=== PATIENT | male | born 1935 | race Caucasian/White ===

== ENCOUNTER 2018-09-15 12:12 | Observation (INO) | payer MEDICARE, OTHER ==
[2018-09-15 13:03] LABS: ADD MAN DIFF? NO
[2018-09-15 13:04] LABS: BASOPHIL # 0.1 10^3/ul (0.0-0.1); BASOPHILS % 0.7 % (0.0-2.0); EOSINOPHILS # 0.1 10^3/ul (0.0-0.5); EOSINOPHILS % 0.9 % (0.0-7.0); HEMATOCRIT 46.1 % (42.0-52.0); HEMOGLOBIN 14.9 g/dl (14.0-18.0); LYMPHOCYTES # 1.7 10^3/ul (0.8-2.9); LYMPHOCYTES % 22.9 % (15.0-51.0); MEAN CORPUSCULAR HGB CONC 32.3 g/dl (32.0-37.0); MEAN CORPUSCULAR VOLUME 86.7 fl (82.0-101.0); MEAN PLATELET VOLUME 9.7 fl (7.4-10.4); MONOCYTE # 0.5 10^3/ul (0.3-0.9); MONOCYTES % 6.9 % (0.0-11.0); NEUTROPHIL # 5.2 10^3/ul (1.6-7.5); NEUTROPHILS % 68.2 % (39.0-77.0); PLATELET COUNT 251 10^3/UL (140-415); RED BLOOD COUNT 5.32 10^6/ul (4.70-6.10); RED CELL DISTRIBUTION WIDTH 13.7 % (11.5-14.5)
[2018-09-15 13:04] LABS: WHITE BLOOD COUNT 7.6 10^3/ul (4.8-10.8)
[2018-09-15 13:23] LABS: ALANINE AMINOTRANSFERASE 18 IU/L (13-69); ALBUMIN 4.1 g/dl (3.3-4.9); ALBUMIN/GLOBULIN RATIO 1.28; ALKALINE PHOSPHATASE 47 IU/L (42-121); ANION GAP 10 (5-13); ASPARTATE AMINO TRANSFERASE 22 IU/L (15-46); BILIRUBIN,INDIRECT 0.5 mg/dl (0-1.1); BILIRUBIN,TOTAL 0.5 mg/dl (0.2-1.3); BLOOD UREA NITROGEN 21 mg/dl (7-20); CALCIUM 9.5 mg/dl (8.4-10.2); CARBON DIOXIDE 26 mmol/L (21-31); CHLORIDE 102 mmol/L (97-110); CREATININE 0.93 mg/dl (0.61-1.24); GLUCOSE 293 mg/dl (70-220); LIPASE 70 U/L (23-300); POTASSIUM 5.2 mmol/L (3.5-5.1); SODIUM 138 mmol/L (135-144); TOTAL PROTEIN 7.3 g/dl (6.1-8.1)
[2018-09-15 13:24] LABS: INR 0.93; PARTIAL THROMBOPLASTIN TIME 29.1 Sec (23.0-35.0); PROTIME 12.6 Sec (11.9-14.9)
[2018-09-15 13:35] LABS: B-TYPE NATRIURETIC PEPTIDE 3150 PG/ML (0-450); TROPONIN-I < 0.012 ng/ml (0.000-0.120)
[2018-09-15] MEDS: FUROSEMIDE 40 MG INJ IV (14:33)
[2018-09-15] MEDS ORDERED: NACL 0.9% 3 ML SYG IV (17:00)
[2018-09-15] MEDS ORDERED: ONDANSETRON 4 MG INJ IV (17:00)
[2018-09-15] MEDS ORDERED: NITROGLYCERIN (SL) 0.4 MG TAB SL (17:00)
[2018-09-15] MEDS ORDERED: DOCUSATE SODIUM 100 MG CAP PO (17:00)
[2018-09-15] MEDS ORDERED: ZOLPIDEM 5 MG TAB PO (17:00)
[2018-09-15 18:26] LABS: HEMOGLOBIN A1C 10.5 % (0-5.9)
[2018-09-15 18:27] LABS: CREATINE KINASE 37 IU/L (23-200)
[2018-09-15] MEDS ORDERED: GLUCOSE GEL 15 GRAM TUBE BUCCAL (18:30)
[2018-09-15] MEDS ORDERED: GLUCAGON 1 MG INJ IM (18:30)
[2018-09-15] MEDS ORDERED: GLUCOSE GEL 15 GRAM TUBE PO ×2 (18:30)
[2018-09-15] MEDS ORDERED: DEXTROSE 50% 50 ML SYRINGE IV ×2 (18:30)
[2018-09-15] MEDS: INSULIN ASPART [NOVOLOG] 3 ML PEN SC ×2 (18:36→20:58)
[2018-09-15 18:40] LABS: CK INDEX 3.8; CK-MB 1.42 ng/ml (0.0-2.4); TROPONIN-I 0.024 ng/ml (0.000-0.120)
[2018-09-15 20:35] LABS: CREATINE KINASE 34 IU/L (23-200)
[2018-09-15] MEDS: RANOLAZINE (SR) 500 MG TAB PO (20:39)
[2018-09-15] MEDS: ATORVASTATIN 40 MG TAB PO (20:40)
[2018-09-15] MEDS: ISOSORBIDE DINITRATE 10 MG TAB PO (20:41)
[2018-09-15 20:48] LABS: CK INDEX 3.4; CK-MB 1.15 ng/ml (0.0-2.4); TROPONIN-I 0.025 ng/ml (0.000-0.120)
[2018-09-15 22:57] LABS: CREATINE KINASE 30 IU/L (23-200)
[2018-09-15 23:10] LABS: CK INDEX 3.4; CK-MB 1.03 ng/ml (0.0-2.4); TROPONIN-I 0.025 ng/ml (0.000-0.120)
[2018-09-16] MEDS: ACCU-CHEK XX (01:54)
[2018-09-16] MEDS: FUROSEMIDE 20 MG INJ IV (06:53)
[2018-09-16] MEDS: RANOLAZINE (SR) 500 MG TAB PO (08:17)
[2018-09-16] MEDS: ISOSORBIDE DINITRATE 10 MG TAB PO ×2 (08:17→13:49)
[2018-09-16] MEDS: ASPIRIN 81 MG TAB PO (08:17)
[2018-09-16] MEDS: ENOXAPARIN 40 MG/0.4 ML SYG SC (08:28)
[2018-09-16] MEDS: INSULIN ASPART [NOVOLOG] 3 ML PEN SC ×2 (08:29→12:31)
[2018-09-16 09:01] LABS: HEMOGLOBIN A1C 10.5 % (0-5.9)
[2018-09-16 09:09] LABS: ANION GAP 12 (5-13); BLOOD UREA NITROGEN 21 mg/dl (7-20); CARBON DIOXIDE 23 mmol/L (21-31); CHLORIDE 100 mmol/L (97-110); CREATININE 0.97 mg/dl (0.61-1.24); GLUCOSE 281 mg/dl (70-220); POTASSIUM 3.9 mmol/L (3.5-5.1); SODIUM 135 mmol/L (135-144)
[2018-09-16] MEDS ORDERED: LABETALOL HCL 20MG INJ (15:24)
== END 2018-09-16 16:20 | disposition home or self-care (01) ==
LOC: E/R 12:12 → TEL 16:28 → E/R 17:27 → TEL 17:32
DX: I50.23 Acute on chronic systolic (congestive) heart failure (principal); R07.9 Chest pain, unspecified; I51.7 Cardiomegaly; J98.11 Atelectasis; J90 Pleural effusion, not elsewhere classified; I70.90 Unspecified atherosclerosis; I25.10 Atherosclerotic heart disease of native coronary artery without angina pectoris; E11.9 Type 2 diabetes mellitus without complications; I10 Essential (primary) hypertension; E78.5 Hyperlipidemia, unspecified; Z79.82 Long term (current) use of aspirin; Z79.4 Long term (current) use of insulin; Z95.1 Presence of aortocoronary bypass graft
CPT/HCPCS: 36415; 71045; 80048; 80053; 82550; 82553; 82962; 83036; 83690; 83880; 84484; 85025; 85610; 85730; 93005; 93306; 96374; 97161; 99285-25; G0378

== ENCOUNTER 2018-10-04 05:07 | Inpatient (IN) | payer MEDICARE, OTHER ==
[2018-10-04] MEDS: ENALAPRILAT 1.25 MG INJ IV (05:26)
[2018-10-04] MEDS: FUROSEMIDE 40 MG INJ IV ×2 (05:27→17:23)
[2018-10-04 05:29] LABS: ADD MAN DIFF? NO
[2018-10-04 05:31] LABS: WHITE BLOOD COUNT 13.6 10^3/ul (4.8-10.8)
[2018-10-04 05:31] LABS: BASOPHIL # 0.1 10^3/ul (0.0-0.1); BASOPHILS % 0.8 % (0.0-2.0); EOSINOPHILS # 0.1 10^3/ul (0.0-0.5); EOSINOPHILS % 0.8 % (0.0-7.0); HEMATOCRIT 48.4 % (42.0-52.0); HEMOGLOBIN 15.5 g/dl (14.0-18.0); LYMPHOCYTES # 3.4 10^3/ul (0.8-2.9); LYMPHOCYTES % 24.8 % (15.0-51.0); MEAN CORPUSCULAR HEMOGLOBIN 28.6 pg (29.0-33.0); MEAN CORPUSCULAR VOLUME 89.3 fl (82.0-101.0); MONOCYTE # 0.9 10^3/ul (0.3-0.9); MONOCYTES % 6.8 % (0.0-11.0); NEUTROPHILS % 66.3 % (39.0-77.0); PLATELET COUNT 348 10^3/UL (140-415); RED BLOOD COUNT 5.42 10^6/ul (4.70-6.10); RED CELL DISTRIBUTION WIDTH 14.1 % (11.5-14.5)
[2018-10-04] MEDS: ASPIRIN 81 MG TAB PO (05:37)
[2018-10-04 05:55] LABS: ALANINE AMINOTRANSFERASE 25 IU/L (13-69); ALBUMIN 4.4 g/dl (3.3-4.9); ALBUMIN/GLOBULIN RATIO 1.22; ALKALINE PHOSPHATASE 54 IU/L (42-121); ANION GAP 20 (5-13); ASPARTATE AMINO TRANSFERASE 31 IU/L (15-46); BILIRUBIN,INDIRECT 0.9 mg/dl (0-1.1); BILIRUBIN,TOTAL 0.9 mg/dl (0.2-1.3); BLOOD UREA NITROGEN 20 mg/dl (7-20); CALCIUM 9.2 mg/dl (8.4-10.2); CARBON DIOXIDE 20 mmol/L (21-31); CHLORIDE 99 mmol/L (97-110); CREATININE 1.16 mg/dl (0.61-1.24); LIPASE 75 U/L (23-300); POTASSIUM 4.3 mmol/L (3.5-5.1); SODIUM 139 mmol/L (135-144)
[2018-10-04 06:02] LABS: GLUCOSE 444 mg/dl (70-220)
[2018-10-04 06:06] LABS: B-TYPE NATRIURETIC PEPTIDE 2850 PG/ML (0-450); TROPONIN-I 0.076 ng/ml (0.000-0.120)
[2018-10-04] MEDS: NITROGLYCERIN (SL) 0.4 MG TAB SL (06:10)
[2018-10-04] MEDS ORDERED: GLUCOSE GEL 15 GRAM TUBE BUCCAL (06:30)
[2018-10-04] MEDS ORDERED: DEXTROSE 50% 50 ML SYRINGE IV ×2 (06:30)
[2018-10-04] MEDS ORDERED: GLUCAGON 1 MG INJ IM (06:30)
[2018-10-04] MEDS ORDERED: GLUCOSE GEL 15 GRAM TUBE PO ×2 (06:30)
[2018-10-04] MEDS: INSULIN LISPRO 100 UNIT/ML VIAL SC (06:54)
[2018-10-04] MEDS: CEFTRIAXONE 1 GM/50 ML (PMX) 50 ML IVPB (08:45)
[2018-10-04] MEDS: AZITHROMYCIN 500MG/NS (PMX) 250 ML IV (09:25)
[2018-10-04] MEDS ORDERED: ACETAMINOPHEN 325 MG TAB PO (10:30)
[2018-10-04] MEDS ORDERED: ONDANSETRON 4 MG INJ IV (10:30)
[2018-10-04] MEDS ORDERED: HYDROCODONE/APAP (5/325) TAB PO (13:00)
[2018-10-04] MEDS ORDERED: NACL 0.9% 3 ML SYG IV (13:00)
[2018-10-04 14:40] LABS: TROPONIN-I 0.904 ng/ml (0.000-0.120)
[2018-10-04] MEDS: INSULIN ASPART [NOVOLOG] 3 ML PEN SC ×3 (17:14→20:29)
[2018-10-04] MEDS: RANOLAZINE (SR) 500 MG TAB PO (20:13)
[2018-10-04] MEDS: INSULIN GLARGINE [LANTus] (100 UNITS/ML) SYG SC (20:18)
[2018-10-04] MEDS: HEPARIN 5,000 UNIT/1 ML VIAL SC (20:18)
[2018-10-04 21:21] LABS: TROPONIN-I 0.763 ng/ml (0.000-0.120)
[2018-10-05] MEDS: FUROSEMIDE 40 MG INJ IV ×2 (05:09→18:24)
[2018-10-05 06:18] LABS: ADD MAN DIFF? NO
[2018-10-05 06:26] LABS: WHITE BLOOD COUNT 8.9 10^3/ul (4.8-10.8)
[2018-10-05 06:26] LABS: BASOPHILS % 0.4 % (0.0-2.0); EOSINOPHILS # 0.1 10^3/ul (0.0-0.5); EOSINOPHILS % 0.8 % (0.0-7.0); HEMATOCRIT 46.5 % (42.0-52.0); HEMOGLOBIN 15.3 g/dl (14.0-18.0); LYMPHOCYTES # 1.7 10^3/ul (0.8-2.9); LYMPHOCYTES % 19.1 % (15.0-51.0); MEAN CORPUSCULAR HEMOGLOBIN 28.5 pg (29.0-33.0); MEAN CORPUSCULAR HGB CONC 32.9 g/dl (32.0-37.0); MEAN CORPUSCULAR VOLUME 86.6 fl (82.0-101.0); MONOCYTE # 0.8 10^3/ul (0.3-0.9); MONOCYTES % 9.3 % (0.0-11.0); NEUTROPHIL # 6.2 10^3/ul (1.6-7.5); PLATELET COUNT 264 10^3/UL (140-415); RED BLOOD COUNT 5.37 10^6/ul (4.70-6.10)
[2018-10-05 06:45] LABS: HEMOGLOBIN A1C 10.1 % (0-5.9)
[2018-10-05 06:51] LABS: ALANINE AMINOTRANSFERASE 27 IU/L (13-69); ALBUMIN/GLOBULIN RATIO 1.08; ALKALINE PHOSPHATASE 46 IU/L (42-121); ANION GAP 13 (5-13); ASPARTATE AMINO TRANSFERASE 26 IU/L (15-46); BILIRUBIN,INDIRECT 1.2 mg/dl (0-1.1); BILIRUBIN,TOTAL 1.2 mg/dl (0.2-1.3); BLOOD UREA NITROGEN 20 mg/dl (7-20); CARBON DIOXIDE 30 mmol/L (21-31); CHLORIDE 97 mmol/L (97-110); CREATININE 1.08 mg/dl (0.61-1.24); GLUCOSE 219 mg/dl (70-220); POTASSIUM 3.8 mmol/L (3.5-5.1); SODIUM 140 mmol/L (135-144); TOTAL PROTEIN 7.7 g/dl (6.1-8.1)
[2018-10-05] MEDS: INSULIN ASPART [NOVOLOG] 3 ML PEN SC ×7 (08:19→20:24)
[2018-10-05] MEDS: RANOLAZINE (SR) 500 MG TAB PO ×2 (09:31→20:11)
[2018-10-05] MEDS: ASPIRIN (EC) 81 MG TAB PO (09:31)
[2018-10-05] MEDS: ISOSORBIDE MONONITRATE(SR)30 MG TAB PO (09:33)
[2018-10-05] MEDS: LOSARTAN 50 MG TAB PO (09:33)
[2018-10-05] MEDS: HEPARIN 5,000 UNIT/1 ML VIAL SC ×2 (09:46→20:25)
[2018-10-05] MEDS: INSULIN GLARGINE [LANTus] (100 UNITS/ML) SYG SC (20:50)
[2018-10-06] MEDS: FUROSEMIDE 40 MG INJ IV ×2 (05:58→18:11)
[2018-10-06 07:47] LABS: B-TYPE NATRIURETIC PEPTIDE 2110 PG/ML (0-450)
[2018-10-06 07:52] LABS: ANION GAP 16 (5-13); BLOOD UREA NITROGEN 31 mg/dl (7-20); CARBON DIOXIDE 29 mmol/L (21-31); CHLORIDE 94 mmol/L (97-110); CREATININE 1.28 mg/dl (0.61-1.24); GLUCOSE 229 mg/dl (70-220); POTASSIUM 3.9 mmol/L (3.5-5.1); SODIUM 139 mmol/L (135-144)
[2018-10-06] MEDS: INSULIN ASPART [NOVOLOG] 3 ML PEN SC ×7 (08:01→21:19)
[2018-10-06] MEDS: ASPIRIN (EC) 81 MG TAB PO (08:07)
[2018-10-06] MEDS: LOSARTAN 50 MG TAB PO (08:07)
[2018-10-06] MEDS: ISOSORBIDE MONONITRATE(SR)30 MG TAB PO (08:07)
[2018-10-06] MEDS: RANOLAZINE (SR) 500 MG TAB PO ×2 (08:07→21:07)
[2018-10-06] MEDS: HEPARIN 5,000 UNIT/1 ML VIAL SC ×2 (08:10→21:20)
[2018-10-06] MEDS: CEFTRIAXONE 1 GM/50 ML (PMX) 50 ML IVPB (17:11)
[2018-10-06] MEDS: AZITHROMYCIN 500MG/NS (PMX) 250 ML IVPB (18:11)
[2018-10-06] MEDS: INSULIN GLARGINE [LANTus] (100 UNITS/ML) SYG SC (21:20)
[2018-10-07] MEDS: ACCU-CHEK XX (02:00)
[2018-10-07] MEDS: FUROSEMIDE 40 MG INJ IV ×2 (06:29→17:57)
[2018-10-07 07:01] LABS: ADD MAN DIFF? NO
[2018-10-07 07:02] LABS: BASOPHILS % 0.6 % (0.0-2.0); EOSINOPHILS # 0.1 10^3/ul (0.0-0.5); EOSINOPHILS % 1.7 % (0.0-7.0); HEMATOCRIT 44.2 % (42.0-52.0); HEMOGLOBIN 14.3 g/dl (14.0-18.0); LYMPHOCYTES # 1.7 10^3/ul (0.8-2.9); LYMPHOCYTES % 23.6 % (15.0-51.0); MEAN CORPUSCULAR HGB CONC 32.4 g/dl (32.0-37.0); MEAN CORPUSCULAR VOLUME 86.7 fl (82.0-101.0); MEAN PLATELET VOLUME 9.8 fl (7.4-10.4); MONOCYTE # 0.6 10^3/ul (0.3-0.9); NEUTROPHIL # 4.7 10^3/ul (1.6-7.5); NEUTROPHILS % 65.7 % (39.0-77.0); PLATELET COUNT 291 10^3/UL (140-415); RED CELL DISTRIBUTION WIDTH 13.5 % (11.5-14.5)
[2018-10-07 07:02] LABS: WHITE BLOOD COUNT 7.2 10^3/ul (4.8-10.8)
[2018-10-07 07:27] LABS: ANION GAP 14 (5-13); BLOOD UREA NITROGEN 36 mg/dl (7-20); CALCIUM 8.9 mg/dl (8.4-10.2); CARBON DIOXIDE 29 mmol/L (21-31); CHLORIDE 95 mmol/L (97-110); CREATININE 1.49 mg/dl (0.61-1.24); GLUCOSE 214 mg/dl (70-220); POTASSIUM 4.1 mmol/L (3.5-5.1); SODIUM 138 mmol/L (135-144)
[2018-10-07] MEDS: INSULIN ASPART [NOVOLOG] 3 ML PEN SC ×7 (07:50→22:23)
[2018-10-07] MEDS: LOSARTAN 50 MG TAB PO (08:56)
[2018-10-07] MEDS: ASPIRIN (EC) 81 MG TAB PO (08:57)
[2018-10-07] MEDS: ISOSORBIDE MONONITRATE(SR)30 MG TAB PO (08:57)
[2018-10-07] MEDS: RANOLAZINE (SR) 500 MG TAB PO ×2 (08:57→20:48)
[2018-10-07] MEDS: HEPARIN 5,000 UNIT/1 ML VIAL SC ×2 (08:58→22:22)
[2018-10-07 10:13] LABS: ADD UMIC YES; UR ASCORBIC ACID NEGATIVE (NEGATIVE); UR BILIRUBIN (Dip) NEGATIVE (NEGATIVE); UR BLOOD (Dip) NEGATIVE (NEGATIVE); UR CLARITY CLEAR (CLEAR); UR COLOR YELLOW (YELLOW); UR GLUCOSE (Dip) NEGATIVE (NEGATIVE); UR KETONES (Dip) NEGATIVE (NEGATIVE); UR LEUKOCYTE ESTERASE (Dip) TRACE Leu/ul (NEGATIVE); UR NITRITE (Dip) NEGATIVE (NEGATIVE); UR RBC 0 /HPF (0-5); UR SPECIFIC GRAVITY (Dip) 1.015 (1.003-1.030); UR TOTAL PROTEIN (Dip) NEGATIVE (NEGATIVE); UR UROBILINOGEN (Dip) NEGATIVE (NEGATIVE); UR WBC 2 /HPF (0-5)
[2018-10-07] MEDS: CEFTRIAXONE 1 GM/50 ML (PMX) 50 ML IVPB (17:16)
[2018-10-07] MEDS: AZITHROMYCIN 500MG/NS (PMX) 250 ML IVPB (17:57)
[2018-10-07] MEDS: INSULIN GLARGINE [LANTus] (100 UNITS/ML) SYG SC (22:22)
[2018-10-08] MEDS: ACCU-CHEK XX (01:26)
[2018-10-08] MEDS: FUROSEMIDE 40 MG INJ IV ×2 (05:12→17:22)
[2018-10-08 06:43] LABS: ADD MAN DIFF? NO
[2018-10-08 06:51] LABS: WHITE BLOOD COUNT 6.8 10^3/ul (4.8-10.8)
[2018-10-08 06:51] LABS: BASOPHILS % 0.6 % (0.0-2.0); EOSINOPHILS # 0.2 10^3/ul (0.0-0.5); EOSINOPHILS % 2.2 % (0.0-7.0); HEMATOCRIT 44.4 % (42.0-52.0); HEMOGLOBIN 14.8 g/dl (14.0-18.0); LYMPHOCYTES # 1.7 10^3/ul (0.8-2.9); LYMPHOCYTES % 25.7 % (15.0-51.0); MEAN CORPUSCULAR HEMOGLOBIN 28.7 pg (29.0-33.0); MEAN CORPUSCULAR HGB CONC 33.3 g/dl (32.0-37.0); MEAN CORPUSCULAR VOLUME 86.2 fl (82.0-101.0); MEAN PLATELET VOLUME 9.4 fl (7.4-10.4); MONOCYTE # 0.5 10^3/ul (0.3-0.9); MONOCYTES % 7.8 % (0.0-11.0); NEUTROPHIL # 4.3 10^3/ul (1.6-7.5); NEUTROPHILS % 63.1 % (39.0-77.0); PLATELET COUNT 323 10^3/UL (140-415); RED BLOOD COUNT 5.15 10^6/ul (4.70-6.10); RED CELL DISTRIBUTION WIDTH 13.3 % (11.5-14.5)
[2018-10-08 07:08] LABS: ANION GAP 11 (5-13); BLOOD UREA NITROGEN 39 mg/dl (7-20); CALCIUM 8.8 mg/dl (8.4-10.2); CARBON DIOXIDE 30 mmol/L (21-31); CHLORIDE 98 mmol/L (97-110); CREATININE 1.39 mg/dl (0.61-1.24); GLUCOSE 185 mg/dl (70-220); POTASSIUM 3.9 mmol/L (3.5-5.1); SODIUM 139 mmol/L (135-144)
[2018-10-08 07:10] LABS: MAGNESIUM 2.2 mg/dl (1.7-2.5)
[2018-10-08] MEDS: ISOSORBIDE MONONITRATE(SR)30 MG TAB PO (08:00)
[2018-10-08] MEDS: ASPIRIN (EC) 81 MG TAB PO (08:00)
[2018-10-08] MEDS: RANOLAZINE (SR) 500 MG TAB PO ×2 (08:01→22:05)
[2018-10-08] MEDS: LOSARTAN 50 MG TAB PO (08:01)
[2018-10-08] MEDS: HEPARIN 5,000 UNIT/1 ML VIAL SC ×2 (08:51→22:15)
[2018-10-08] MEDS: INSULIN ASPART [NOVOLOG] 3 ML PEN SC ×7 (08:53→22:09)
[2018-10-08] MEDS: CEFTRIAXONE 1 GM/50 ML (PMX) 50 ML IVPB (17:21)
[2018-10-08] MEDS ORDERED: BUMETANIDE 3 MG in DEXTROSE 5% 18 ML IV (18:30)
[2018-10-08] MEDS: AZITHROMYCIN 500MG/NS (PMX) 250 ML IVPB (18:37)
[2018-10-08] MEDS: INSULIN GLARGINE [LANTus] (100 UNITS/ML) SYG SC (22:14)
[2018-10-09] MEDS: ACCU-CHEK XX (02:00)
[2018-10-09 08:01] LABS: ANION GAP 9 (5-13); BLOOD UREA NITROGEN 40 mg/dl (7-20); CALCIUM 9.5 mg/dl (8.4-10.2); CARBON DIOXIDE 31 mmol/L (21-31); CHLORIDE 98 mmol/L (97-110); CREATININE 1.37 mg/dl (0.61-1.24); GLUCOSE 197 mg/dl (70-220); POTASSIUM 4.2 mmol/L (3.5-5.1); SODIUM 138 mmol/L (135-144)
[2018-10-09 08:02] LABS: TROPONIN-I 0.083 ng/ml (0.000-0.120)
[2018-10-09 08:02] LABS: B-TYPE NATRIURETIC PEPTIDE 1440 PG/ML (0-450)
[2018-10-09] MEDS: RANOLAZINE (SR) 500 MG TAB PO ×2 (08:09→20:23)
[2018-10-09] MEDS: ASPIRIN (EC) 81 MG TAB PO (08:09)
[2018-10-09] MEDS: ISOSORBIDE MONONITRATE(SR)30 MG TAB PO (08:09)
[2018-10-09] MEDS: LOSARTAN 50 MG TAB PO (08:10)
[2018-10-09] MEDS: BUMETANIDE 3 MG in DEXTROSE 5% 18 ML IV (08:11)
[2018-10-09] MEDS: HEPARIN 5,000 UNIT/1 ML VIAL SC ×2 (08:22→20:27)
[2018-10-09] MEDS: INSULIN ASPART [NOVOLOG] 3 ML PEN SC ×7 (08:27→20:29)
[2018-10-09] MEDS: CEFTRIAXONE 1 GM/50 ML (PMX) 50 ML IVPB (16:12)
[2018-10-09] MEDS: AZITHROMYCIN 500MG/NS (PMX) 250 ML IVPB (17:15)
[2018-10-09] MEDS: BUMETANIDE 1 MG TAB PO (17:18)
[2018-10-09] MEDS: INSULIN GLARGINE [LANTus] (100 UNITS/ML) SYG SC (20:27)
[2018-10-10] MEDS: ACCU-CHEK XX (02:00)
[2018-10-10] MEDS: BUMETANIDE 1 MG TAB PO ×2 (06:05→17:17)
[2018-10-10 06:57] LABS: ANION GAP 9 (5-13); BLOOD UREA NITROGEN 40 mg/dl (7-20); CALCIUM 8.9 mg/dl (8.4-10.2); CARBON DIOXIDE 31 mmol/L (21-31); CHLORIDE 99 mmol/L (97-110); CREATININE 1.54 mg/dl (0.61-1.24); GLUCOSE 167 mg/dl (70-220); POTASSIUM 4.3 mmol/L (3.5-5.1); SODIUM 139 mmol/L (135-144)
[2018-10-10] MEDS: INSULIN ASPART [NOVOLOG] 3 ML PEN SC ×7 (08:07→20:37)
[2018-10-10] MEDS: ISOSORBIDE MONONITRATE(SR)30 MG TAB PO (08:35)
[2018-10-10] MEDS: RANOLAZINE (SR) 500 MG TAB PO ×2 (08:35→20:41)
[2018-10-10] MEDS: HEPARIN 5,000 UNIT/1 ML VIAL SC ×2 (08:35→20:50)
[2018-10-10] MEDS: ASPIRIN (EC) 81 MG TAB PO (08:36)
[2018-10-10] MEDS: DOXYCYCLINE 100 MG in SOD CHLORIDE 0.9% 250 ML IVPB (16:00)
[2018-10-10] MEDS: CEFTRIAXONE 1 GM/50 ML (PMX) 50 ML IVPB (17:13)
[2018-10-10] MEDS: INSULIN GLARGINE [LANTus] (100 UNITS/ML) SYG SC (20:32)
[2018-10-11] MEDS: ACCU-CHEK XX (02:39)
[2018-10-11] MEDS: BUMETANIDE 1 MG TAB PO ×2 (06:04→17:04)
[2018-10-11 07:00] LABS: ANION GAP 6 (5-13); BLOOD UREA NITROGEN 34 mg/dl (7-20); CALCIUM 8.8 mg/dl (8.4-10.2); CARBON DIOXIDE 29 mmol/L (21-31); CHLORIDE 103 mmol/L (97-110); CREATININE 1.25 mg/dl (0.61-1.24); GLUCOSE 141 mg/dl (70-220); MAGNESIUM 2.3 mg/dl (1.7-2.5); POTASSIUM 4.1 mmol/L (3.5-5.1); SODIUM 138 mmol/L (135-144)
[2018-10-11] MEDS: INSULIN ASPART [NOVOLOG] 3 ML PEN SC ×6 (08:05→17:09)
[2018-10-11] MEDS: RANOLAZINE (SR) 500 MG TAB PO (08:39)
[2018-10-11] MEDS: ISOSORBIDE MONONITRATE(SR)30 MG TAB PO (08:39)
[2018-10-11] MEDS: ASPIRIN (EC) 81 MG TAB PO (08:40)
[2018-10-11] MEDS: DOXYCYCLINE 100 MG in SOD CHLORIDE 0.9% 250 ML IVPB ×2 (08:42)
[2018-10-11] MEDS: HEPARIN 5,000 UNIT/1 ML VIAL SC (08:47)
[2018-10-11] MEDS: CEFTRIAXONE 1 GM/50 ML (PMX) 50 ML IVPB (17:00)
== END 2018-10-11 19:30 | disposition left against medical advice (07) | DRG 280 ==
LOC: PP2 10-11 18:19 → E/R 05:07 → TEL 10:22
PROC: 5A09357 Assistance with Respiratory Ventilation, Less than 24 Consecutive Hours, Continuous Positive Airway Pressure (ICD-10-PCS; principal; 2018-10-04)
DX: I13.0 Hypertensive heart and chronic kidney disease with heart failure and stage 1 through stage 4 chronic kidney disease, or unspecified chronic kidney disease (principal); J18.9 Pneumonia, unspecified organism; I21.A1 Myocardial infarction type 2; J96.01 Acute respiratory failure with hypoxia; I50.23 Acute on chronic systolic (congestive) heart failure; N17.9 Acute kidney failure, unspecified; R78.81 Bacteremia; Z95.5 Presence of coronary angioplasty implant and graft; Z95.1 Presence of aortocoronary bypass graft; E11.649 Type 2 diabetes mellitus with hypoglycemia without coma; Z87.891 Personal history of nicotine dependence; I25.5 Ischemic cardiomyopathy; J43.9 Emphysema, unspecified; N18.9 Chronic kidney disease, unspecified
CPT/HCPCS: 36415; 71045; 80048; 80053; 81001; 82962; 83036; 83690; 83735; 83880; 84100; 84484; 85025; 87040; 87081; 93005; 94660; 96372; 96374; 96375; 97161; 99291-25

== ENCOUNTER 2018-11-23 16:22 | Inpatient (IN) | payer MEDICARE, OTHER ==
[2018-11-23 16:40] LABS: ADD MAN DIFF? NO
[2018-11-23 16:45] LABS: ABNORMAL IP MESSAGE 1; BASOPHIL # 0.1 10^3/ul (0.0-0.1); BASOPHILS % 0.8 % (0.0-2.0); HEMATOCRIT 47.1 % (42.0-52.0); HEMOGLOBIN 15.4 g/dl (14.0-18.0); LYMPHOCYTES # 0.5 10^3/ul (0.8-2.9); MEAN CORPUSCULAR HEMOGLOBIN 28.2 pg (29.0-33.0); MEAN CORPUSCULAR HGB CONC 32.7 g/dl (32.0-37.0); MEAN CORPUSCULAR VOLUME 86.3 fl (82.0-101.0); MONOCYTE # 0.6 10^3/ul (0.3-0.9); MONOCYTES % 7.5 % (0.0-11.0); NEUTROPHIL # 6.5 10^3/ul (1.6-7.5); NEUTROPHILS % 84.2 % (39.0-77.0); PLATELET COUNT 258 10^3/UL (140-415); POSITIVE DIFF @See below; RED BLOOD COUNT 5.46 10^6/ul (4.70-6.10); RED CELL DISTRIBUTION WIDTH 14.3 % (11.5-14.5)
[2018-11-23 16:45] LABS: WHITE BLOOD COUNT 7.8 10^3/ul (4.8-10.8)
[2018-11-23 16:59] LABS: INR 1.01; PROTIME 13.4 Sec (11.9-14.9)
[2018-11-23 17:00] LABS: PARTIAL THROMBOPLASTIN TIME 28.8 Sec (23.0-35.0)
[2018-11-23 17:46] LABS: ANION GAP 15 (5-13); BLOOD UREA NITROGEN 23 mg/dl (7-20); CALCIUM 9.7 mg/dl (8.4-10.2); CARBON DIOXIDE 23 mmol/L (21-31); CHLORIDE 100 mmol/L (97-110); CREATININE 1.22 mg/dl (0.61-1.24); GLUCOSE 296 mg/dl (70-220); POTASSIUM 4.8 mmol/L (3.5-5.1); SODIUM 138 mmol/L (135-144)
[2018-11-23 17:58] LABS: B-TYPE NATRIURETIC PEPTIDE 5460 PG/ML (0-450); TROPONIN-I 0.021 ng/ml (0.000-0.120)
[2018-11-23] MEDS: FUROSEMIDE 40 MG INJ IV (18:30)
[2018-11-23] MEDS ORDERED: NITROGLYCERIN (SL) 0.4 MG TAB SL (19:30)
[2018-11-23] MEDS ORDERED: NACL 0.9% 3 ML SYG IV (19:30)
[2018-11-23] MEDS ORDERED: ONDANSETRON 4 MG INJ IV (19:30)
[2018-11-23] MEDS ORDERED: GLUCAGON 1 MG INJ IM (20:00)
[2018-11-23] MEDS ORDERED: DEXTROSE 50% 50 ML SYRINGE IV ×2 (20:00)
[2018-11-23] MEDS ORDERED: GLUCOSE GEL 15 GRAM TUBE BUCCAL (20:00)
[2018-11-23] MEDS ORDERED: GLUCOSE GEL 15 GRAM TUBE PO ×2 (20:00)
[2018-11-24] MEDS: FUROSEMIDE 40 MG INJ IV ×3 (00:54→17:24)
[2018-11-24] MEDS: INSULIN ASPART [NOVOLOG] 3 ML PEN SC ×9 (01:02→21:43)
[2018-11-24] MEDS: ACCU-CHEK XX (02:00)
[2018-11-24] MEDS: PANTOPRAZOLE (EC) 40 MG TAB PO (06:19)
[2018-11-24 07:51] LABS: ADD MAN DIFF? NO
[2018-11-24 07:54] LABS: BASOPHILS % 0.5 % (0.0-2.0); HEMOGLOBIN 15.9 g/dl (14.0-18.0); LYMPHOCYTES # 0.7 10^3/ul (0.8-2.9); LYMPHOCYTES % 11.1 % (15.0-51.0); MEAN CORPUSCULAR HEMOGLOBIN 28.5 pg (29.0-33.0); MEAN CORPUSCULAR HGB CONC 33.1 g/dl (32.0-37.0); MEAN CORPUSCULAR VOLUME 86.2 fl (82.0-101.0); MEAN PLATELET VOLUME 9.8 fl (7.4-10.4); MONOCYTE # 0.6 10^3/ul (0.3-0.9); MONOCYTES % 9.3 % (0.0-11.0); NEUTROPHILS % 78.6 % (39.0-77.0); PLATELET COUNT 222 10^3/UL (140-415); RED BLOOD COUNT 5.57 10^6/ul (4.70-6.10); RED CELL DISTRIBUTION WIDTH 14.3 % (11.5-14.5)
[2018-11-24 07:54] LABS: WHITE BLOOD COUNT 6.3 10^3/ul (4.8-10.8)
[2018-11-24] MEDS: INSULIN GLARGINE [LANTus] (100 UNITS/ML) SYG SC (08:01)
[2018-11-24 08:04] LABS: HEMOGLOBIN A1C 9.7 % (0-5.9)
[2018-11-24 08:21] LABS: ALANINE AMINOTRANSFERASE 17 IU/L (13-69); ALBUMIN 4.5 g/dl (3.3-4.9); ALBUMIN/GLOBULIN RATIO 1.18; ALKALINE PHOSPHATASE 50 IU/L (42-121); ANION GAP 18 (5-13); ASPARTATE AMINO TRANSFERASE 24 IU/L (15-46); BILIRUBIN,INDIRECT 1.4 mg/dl (0-1.1); BILIRUBIN,TOTAL 1.4 mg/dl (0.2-1.3); BLOOD UREA NITROGEN 23 mg/dl (7-20); CALCIUM 9.1 mg/dl (8.4-10.2); CARBON DIOXIDE 26 mmol/L (21-31); CHLORIDE 94 mmol/L (97-110); CREATININE 1.11 mg/dl (0.61-1.24); GLUCOSE 366 mg/dl (70-220); MAGNESIUM 1.8 mg/dl (1.7-2.5); PHOSPHORUS 3.6 mg/dl (2.5-4.9); POTASSIUM 3.8 mmol/L (3.5-5.1); SODIUM 138 mmol/L (135-144); TOTAL PROTEIN 8.3 g/dl (6.1-8.1)
[2018-11-24 08:50] LABS: THYROID STIMULATING HORMONE 0.243 MIU/L (0.465-4.680)
[2018-11-24] MEDS: ASPIRIN (EC) 81 MG TAB PO (09:06)
[2018-11-24] MEDS: LOSARTAN 50 MG TAB PO (09:07)
[2018-11-24] MEDS: ENOXAPARIN 40 MG/0.4 ML SYG SC (09:11)
[2018-11-24] MEDS: MAGNESIUM SULFATE 2 GM/50 ML 50 ML IVPB (11:53)
[2018-11-24] MEDS: ISOSORBIDE MONONITRATE(SR)60 MG TAB PO (18:55)
[2018-11-24] MEDS: DEXTROSE 5% IV (20:50)
[2018-11-24] MEDS: BUMETANIDE IV (20:50)
[2018-11-25] MEDS: ACCU-CHEK XX (02:00)
[2018-11-25] MEDS: PANTOPRAZOLE (EC) 40 MG TAB PO (05:48)
[2018-11-25] MEDS: INSULIN ASPART [NOVOLOG] 3 ML PEN SC ×7 (08:15→20:22)
[2018-11-25] MEDS: INSULIN GLARGINE [LANTus] (100 UNITS/ML) SYG SC (08:20)
[2018-11-25] MEDS: LOSARTAN 50 MG TAB PO (09:12)
[2018-11-25] MEDS: ASPIRIN (EC) 81 MG TAB PO (09:12)
[2018-11-25] MEDS: ISOSORBIDE MONONITRATE(SR)60 MG TAB PO ×2 (09:12→20:10)
[2018-11-25] MEDS: ENOXAPARIN 40 MG/0.4 ML SYG SC (09:15)
[2018-11-25 11:15] LABS: ADD MAN DIFF? NO
[2018-11-25 11:21] LABS: WHITE BLOOD COUNT 6.4 10^3/ul (4.8-10.8)
[2018-11-25 11:21] LABS: BASOPHILS % 0.5 % (0.0-2.0); EOSINOPHILS % 0.2 % (0.0-7.0); HEMATOCRIT 43.9 % (42.0-52.0); HEMOGLOBIN 14.3 g/dl (14.0-18.0); LYMPHOCYTES # 0.9 10^3/ul (0.8-2.9); LYMPHOCYTES % 14.3 % (15.0-51.0); MEAN CORPUSCULAR HEMOGLOBIN 28.4 pg (29.0-33.0); MEAN CORPUSCULAR HGB CONC 32.6 g/dl (32.0-37.0); MEAN CORPUSCULAR VOLUME 87.1 fl (82.0-101.0); MONOCYTE # 0.4 10^3/ul (0.3-0.9); MONOCYTES % 6.9 % (0.0-11.0); NEUTROPHILS % 77.6 % (39.0-77.0); PLATELET COUNT 202 10^3/UL (140-415); RED BLOOD COUNT 5.04 10^6/ul (4.70-6.10); RED CELL DISTRIBUTION WIDTH 14.2 % (11.5-14.5)
[2018-11-25 11:51] LABS: ANION GAP 13 (5-13); BLOOD UREA NITROGEN 48 mg/dl (7-20); CALCIUM 8.6 mg/dl (8.4-10.2); CARBON DIOXIDE 28 mmol/L (21-31); CHLORIDE 92 mmol/L (97-110); CREATININE 2.03 mg/dl (0.61-1.24); GLUCOSE 346 mg/dl (70-220); MAGNESIUM 2.5 mg/dl (1.7-2.5); PHOSPHORUS 4.4 mg/dl (2.5-4.9); POTASSIUM 3.7 mmol/L (3.5-5.1); SODIUM 133 mmol/L (135-144)
[2018-11-25] MEDS: ACETAMINOPHEN 325 MG TAB PO (17:32)
[2018-11-25] MEDS: BUMETANIDE 1 MG INJ IV (18:43)
[2018-11-26] MEDS: ACCU-CHEK XX (03:09)
[2018-11-26] MEDS: PANTOPRAZOLE (EC) 40 MG TAB PO (06:04)
[2018-11-26] MEDS: BUMETANIDE 1 MG INJ IV (06:04)
[2018-11-26 07:19] LABS: ANION GAP 14 (5-13); BLOOD UREA NITROGEN 62 mg/dl (7-20); CALCIUM 8.5 mg/dl (8.4-10.2); CARBON DIOXIDE 23 mmol/L (21-31); CHLORIDE 95 mmol/L (97-110); CREATININE 2.18 mg/dl (0.61-1.24); GLUCOSE 255 mg/dl (70-220); SODIUM 132 mmol/L (135-144)
[2018-11-26 07:58] LABS: MAGNESIUM 2.4 mg/dl (1.7-2.5)
[2018-11-26 07:58] LABS: PHOSPHORUS 4.8 mg/dl (2.5-4.9)
[2018-11-26] MEDS: INSULIN GLARGINE [LANTus] (100 UNITS/ML) SYG SC (08:10)
[2018-11-26] MEDS: INSULIN ASPART [NOVOLOG] 3 ML PEN SC ×7 (08:10→20:35)
[2018-11-26] MEDS: ASPIRIN (EC) 81 MG TAB PO (09:13)
[2018-11-26] MEDS: ISOSORBIDE MONONITRATE(SR)60 MG TAB PO ×2 (09:14→20:25)
[2018-11-26] MEDS: ENOXAPARIN 40 MG/0.4 ML SYG SC (09:23)
[2018-11-26 13:06] LABS: ADD MAN DIFF? NO
[2018-11-26 13:10] LABS: WHITE BLOOD COUNT 5.8 10^3/ul (4.8-10.8)
[2018-11-26 13:10] LABS: BASOPHILS % 0.5 % (0.0-2.0); EOSINOPHILS % 0.2 % (0.0-7.0); HEMATOCRIT 45.2 % (42.0-52.0); HEMOGLOBIN 14.7 g/dl (14.0-18.0); LYMPHOCYTES # 1.3 10^3/ul (0.8-2.9); LYMPHOCYTES % 22.9 % (15.0-51.0); MEAN CORPUSCULAR HEMOGLOBIN 28.1 pg (29.0-33.0); MEAN CORPUSCULAR HGB CONC 32.5 g/dl (32.0-37.0); MEAN CORPUSCULAR VOLUME 86.4 fl (82.0-101.0); MEAN PLATELET VOLUME 10.3 fl (7.4-10.4); MONOCYTE # 0.5 10^3/ul (0.3-0.9); MONOCYTES % 8.2 % (0.0-11.0); NEUTROPHIL # 3.9 10^3/ul (1.6-7.5); NEUTROPHILS % 67.7 % (39.0-77.0); PLATELET COUNT 210 10^3/UL (140-415); RED BLOOD COUNT 5.23 10^6/ul (4.70-6.10); RED CELL DISTRIBUTION WIDTH 14.1 % (11.5-14.5)
[2018-11-26] MEDS: ALBUTEROL/IPRATROPIUM (NEB) 3 ML AMP HHN (23:27)
[2018-11-27] MEDS: ACCU-CHEK XX (01:31)
[2018-11-27] MEDS: PANTOPRAZOLE (EC) 40 MG TAB PO (05:17)
[2018-11-27 06:52] LABS: PHOSPHORUS 4.7 mg/dl (2.5-4.9)
[2018-11-27 06:52] LABS: MAGNESIUM 2.6 mg/dl (1.7-2.5)
[2018-11-27 06:56] LABS: B-TYPE NATRIURETIC PEPTIDE 1610 PG/ML (0-450)
[2018-11-27 07:11] LABS: ANION GAP 13 (5-13); BLOOD UREA NITROGEN 59 mg/dl (7-20); CALCIUM 8.6 mg/dl (8.4-10.2); CARBON DIOXIDE 28 mmol/L (21-31); CHLORIDE 95 mmol/L (97-110); GLUCOSE 198 mg/dl (70-220); POTASSIUM 3.7 mmol/L (3.5-5.1); SODIUM 136 mmol/L (135-144)
[2018-11-27] MEDS: INSULIN GLARGINE [LANTus] (100 UNITS/ML) SYG SC (08:00)
[2018-11-27] MEDS: INSULIN ASPART [NOVOLOG] 3 ML PEN SC ×7 (08:01→20:19)
[2018-11-27] MEDS: ASPIRIN (EC) 81 MG TAB PO (09:07)
[2018-11-27] MEDS: ISOSORBIDE MONONITRATE(SR)60 MG TAB PO ×2 (09:09→20:06)
[2018-11-27] MEDS: ENOXAPARIN 40 MG/0.4 ML SYG SC (09:10)
[2018-11-27] MEDS: CEFEPIME 1GM/50 ML (PMX) 50 ML IVPB (11:02)
[2018-11-27] MEDS: AZITHROMYCIN 500MG/NS (PMX) 250 ML IVPB (11:47)
[2018-11-27] MEDS: ALBUTEROL/IPRATROPIUM (NEB) 3 ML AMP HHN ×2 (14:24→20:22)
[2018-11-28] MEDS: ACCU-CHEK XX (02:25)
[2018-11-28] MEDS: PANTOPRAZOLE (EC) 40 MG TAB PO (06:24)
[2018-11-28 07:20] LABS: ANION GAP 9 (5-13); BLOOD UREA NITROGEN 40 mg/dl (7-20); CALCIUM 8.5 mg/dl (8.4-10.2); CARBON DIOXIDE 30 mmol/L (21-31); CHLORIDE 101 mmol/L (97-110); CREATININE 1.13 mg/dl (0.61-1.24); GLUCOSE 154 mg/dl (70-220); POTASSIUM 3.5 mmol/L (3.5-5.1); SODIUM 140 mmol/L (135-144)
[2018-11-28 07:21] LABS: PHOSPHORUS 3.5 mg/dl (2.5-4.9)
[2018-11-28 07:21] LABS: MAGNESIUM 2.7 mg/dl (1.7-2.5)
[2018-11-28] MEDS: ALBUTEROL/IPRATROPIUM (NEB) 3 ML AMP HHN ×3 (07:50→19:35)
[2018-11-28] MEDS: ASPIRIN (EC) 81 MG TAB PO (08:33)
[2018-11-28] MEDS: ISOSORBIDE MONONITRATE(SR)60 MG TAB PO ×2 (08:33→21:20)
[2018-11-28] MEDS: INSULIN GLARGINE [LANTus] (100 UNITS/ML) SYG SC (08:47)
[2018-11-28] MEDS: INSULIN ASPART [NOVOLOG] 3 ML PEN SC ×7 (08:47→21:00)
[2018-11-28] MEDS: ENOXAPARIN 40 MG/0.4 ML SYG SC (08:47)
[2018-11-28] MEDS: CEFEPIME 1GM/50 ML (PMX) 50 ML IVPB (10:32)
[2018-11-28] MEDS: AZITHROMYCIN 500MG/NS (PMX) 250 ML IVPB (12:28)
[2018-11-29] MEDS: CEFEPIME 1GM/50 ML (PMX) 50 ML IVPB ×3 (00:58→22:37)
[2018-11-29] MEDS: ALBUTEROL/IPRATROPIUM (NEB) 3 ML AMP HHN ×4 (01:10→19:47)
[2018-11-29] MEDS: ACCU-CHEK XX (01:51)
[2018-11-29] MEDS: PANTOPRAZOLE (EC) 40 MG TAB PO (06:02)
[2018-11-29 07:17] LABS: ANION GAP 12 (5-13); BLOOD UREA NITROGEN 27 mg/dl (7-20); CALCIUM 8.9 mg/dl (8.4-10.2); CARBON DIOXIDE 28 mmol/L (21-31); CHLORIDE 102 mmol/L (97-110); CREATININE 0.84 mg/dl (0.61-1.24); GLUCOSE 124 mg/dl (70-220); POTASSIUM 3.7 mmol/L (3.5-5.1); SODIUM 142 mmol/L (135-144)
[2018-11-29 07:22] LABS: MAGNESIUM 2.4 mg/dl (1.7-2.5)
[2018-11-29] MEDS: INSULIN ASPART [NOVOLOG] 3 ML PEN SC ×7 (07:55→20:18)
[2018-11-29] MEDS: ASPIRIN (EC) 81 MG TAB PO (08:06)
[2018-11-29] MEDS: ISOSORBIDE MONONITRATE(SR)60 MG TAB PO ×2 (08:06→20:18)
[2018-11-29] MEDS: INSULIN GLARGINE [LANTus] (100 UNITS/ML) SYG SC (08:15)
[2018-11-29] MEDS: ENOXAPARIN 40 MG/0.4 ML SYG SC (08:15)
[2018-11-29] MEDS: BUMETANIDE 1 MG TAB PO (11:03)
[2018-11-29] MEDS: LOSARTAN 50 MG TAB PO (11:04)
[2018-11-29] MEDS: AZITHROMYCIN 500MG/NS (PMX) 250 ML IVPB (13:29)
[2018-11-30] MEDS: ALBUTEROL/IPRATROPIUM (NEB) 3 ML AMP HHN ×3 (00:14→13:10)
[2018-11-30] MEDS: FUROSEMIDE 40 MG INJ IV (01:55)
[2018-11-30] MEDS: ACCU-CHEK XX (02:00)
[2018-11-30] MEDS: PANTOPRAZOLE (EC) 40 MG TAB PO (06:17)
[2018-11-30 07:03] LABS: ADD MAN DIFF? NO
[2018-11-30 07:05] LABS: BASOPHILS % 0.5 % (0.0-2.0); EOSINOPHILS # 0.1 10^3/ul (0.0-0.5); EOSINOPHILS % 1.2 % (0.0-7.0); HEMATOCRIT 43.9 % (42.0-52.0); HEMOGLOBIN 14.2 g/dl (14.0-18.0); LYMPHOCYTES # 1.8 10^3/ul (0.8-2.9); MEAN CORPUSCULAR HEMOGLOBIN 28.1 pg (29.0-33.0); MEAN CORPUSCULAR HGB CONC 32.3 g/dl (32.0-37.0); MEAN CORPUSCULAR VOLUME 86.8 fl (82.0-101.0); MEAN PLATELET VOLUME 10.2 fl (7.4-10.4); MONOCYTE # 0.5 10^3/ul (0.3-0.9); MONOCYTES % 8.8 % (0.0-11.0); NEUTROPHIL # 3.4 10^3/ul (1.6-7.5); PLATELET COUNT 278 10^3/UL (140-415); POSITIVE DIFF @See below; RED BLOOD COUNT 5.06 10^6/ul (4.70-6.10); RED CELL DISTRIBUTION WIDTH 14.2 % (11.5-14.5)
[2018-11-30 07:05] LABS: WHITE BLOOD COUNT 5.9 10^3/ul (4.8-10.8)
[2018-11-30 07:33] LABS: ANION GAP 10 (5-13); BLOOD UREA NITROGEN 30 mg/dl (7-20); CALCIUM 9.1 mg/dl (8.4-10.2); CARBON DIOXIDE 29 mmol/L (21-31); CHLORIDE 103 mmol/L (97-110); CREATININE 1.21 mg/dl (0.61-1.24); GLUCOSE 166 mg/dl (70-220); POTASSIUM 4.3 mmol/L (3.5-5.1); SODIUM 142 mmol/L (135-144)
[2018-11-30 07:42] LABS: MAGNESIUM 2.3 mg/dl (1.7-2.5)
[2018-11-30 07:42] LABS: PHOSPHORUS 3.7 mg/dl (2.5-4.9)
[2018-11-30] MEDS: BUMETANIDE 1 MG TAB PO (08:47)
[2018-11-30] MEDS: ASPIRIN (EC) 81 MG TAB PO (08:47)
[2018-11-30] MEDS: LOSARTAN 50 MG TAB PO (08:57)
[2018-11-30] MEDS: ISOSORBIDE MONONITRATE(SR)60 MG TAB PO (08:57)
[2018-11-30] MEDS: INSULIN ASPART [NOVOLOG] 3 ML PEN SC ×4 (09:09→12:45)
[2018-11-30] MEDS: INSULIN GLARGINE [LANTus] (100 UNITS/ML) SYG SC (09:09)
[2018-11-30] MEDS: ENOXAPARIN 40 MG/0.4 ML SYG SC (09:09)
[2018-11-30] MEDS: AZITHROMYCIN 500MG/NS (PMX) 250 ML IVPB (12:54)
[2018-12-01] MEDS ORDERED: AZITHROMYCIN 250 MG TAB PO (09:00)
== END 2018-11-30 20:16 | DRG 291 ==
LOC: E/R 16:22 → TEL 18:45
DX: I11.0 Hypertensive heart disease with heart failure (principal); J18.9 Pneumonia, unspecified organism; N17.9 Acute kidney failure, unspecified; I50.23 Acute on chronic systolic (congestive) heart failure; I25.5 Ischemic cardiomyopathy; Z79.84 Long term (current) use of oral hypoglycemic drugs; E11.65 Type 2 diabetes mellitus with hyperglycemia; I25.10 Atherosclerotic heart disease of native coronary artery without angina pectoris; J43.9 Emphysema, unspecified; R09.02 Hypoxemia; Z95.1 Presence of aortocoronary bypass graft; E78.5 Hyperlipidemia, unspecified; I48.91 Unspecified atrial fibrillation; Z98.61 Coronary angioplasty status; Z87.891 Personal history of nicotine dependence
CPT/HCPCS: 36415; 71045; 71250; 80048; 80053; 82962; 83036; 83735; 83880; 84100; 84443; 84484; 85025; 85610; 85730; 93005; 94640; 94664; 96374; 97116; 97161; 97530; 99285-25

== ENCOUNTER 2019-02-28 07:15 | Inpatient (IN) | payer MEDICARE, OTHER ==
[2019-02-28] MEDS: METHYLPREDNISOLONE 125 MG INJ IV (07:37)
[2019-02-28 07:47] LABS: AADO2 Arterial 114.4 mmHg (7.0-24.0); Allen Test ACCEPTAB; Arterial Base Excess -2.2 mmol/L (-3.0-3); Arterial Blood Gas Oxygen Sat 90.1 mmHG (95.0-100.0); Arterial COHb 0.7 % (0.0-3.0); Arterial Fraction of Oxyhgb 89.3 % (93.0-99.0); Arterial HCO3 21.6 mmol/L (22.0-26.0); Arterial MetHb 0.2 % (0.0-1.5); Arterial pCO2 34.4 mmhg (35-45); MODE NASAL CANNULA; Site Right Radial
[2019-02-28 07:58] LABS: ADD MAN DIFF? NO
[2019-02-28 07:59] LABS: WHITE BLOOD COUNT 11.6 10^3/ul (4.8-10.8)
[2019-02-28 07:59] LABS: BASOPHIL # 0.1 10^3/ul (0.0-0.1); BASOPHILS % 0.8 % (0.0-2.0); EOSINOPHILS # 0.1 10^3/ul (0.0-0.5); EOSINOPHILS % 0.9 % (0.0-7.0); HEMATOCRIT 46.8 % (42.0-52.0); LYMPHOCYTES # 2.2 10^3/ul (0.8-2.9); LYMPHOCYTES % 18.8 % (15.0-51.0); MEAN CORPUSCULAR HEMOGLOBIN 28.4 pg (29.0-33.0); MEAN CORPUSCULAR HGB CONC 32.1 g/dl (32.0-37.0); MEAN CORPUSCULAR VOLUME 88.5 fl (82.0-101.0); MEAN PLATELET VOLUME 9.7 fl (7.4-10.4); MONOCYTE # 0.7 10^3/ul (0.3-0.9); MONOCYTES % 6.1 % (0.0-11.0); NEUTROPHIL # 8.5 10^3/ul (1.6-7.5); PLATELET COUNT 278 10^3/UL (140-415); RED BLOOD COUNT 5.29 10^6/ul (4.70-6.10)
[2019-02-28] MEDS: IPRATROPIUM (NEB) 0.5 MG/2.5 ML AMP INH (08:04)
[2019-02-28] MEDS: ALBUTEROL 0.083% (NEB) 2.5 MG/3 ML AMP INH (08:05)
[2019-02-28] MEDS: LORAZEPAM 2 MG INJ IV (08:18)
[2019-02-28 08:19] LABS: ANION GAP 12 (5-13); BLOOD UREA NITROGEN 24 mg/dl (7-20); CALCIUM 9.1 mg/dl (8.4-10.2); CARBON DIOXIDE 25 mmol/L (21-31); CHLORIDE 102 mmol/L (97-110); CREATININE 1.23 mg/dl (0.61-1.24); GLUCOSE 239 mg/dl (70-220); POTASSIUM 5.5 mmol/L (3.5-5.1); SODIUM 139 mmol/L (135-144)
[2019-02-28 08:29] LABS: INR 0.91; PROTIME 12.4 Sec (11.9-14.9)
[2019-02-28 08:30] LABS: PARTIAL THROMBOPLASTIN TIME 29.1 Sec (23.0-35.0)
[2019-02-28 08:31] LABS: B-TYPE NATRIURETIC PEPTIDE 3300 PG/ML (0-450); TROPONIN-I 0.057 ng/ml (0.000-0.120)
[2019-02-28] MEDS: ASPIRIN 81 MG TAB PO (09:11)
[2019-02-28] MEDS: IOHEXOL 100 ML (09:15)
[2019-02-28] MEDS: SOD CHLORIDE 0.9% 100 ML (09:15)
[2019-02-28 09:20] LABS: LACTIC ACID 3.4 mmol/L (0.5-2.0)
[2019-02-28] MEDS: LEVOFLOXACIN 750MG/D5W (PMX) 150 ML IVPB (09:27)
[2019-02-28] MEDS: SOD CHLORIDE 0.9% 1,000 ML IV (09:27)
[2019-02-28] MEDS ORDERED: ONDANSETRON 4 MG INJ IV (09:30)
[2019-02-28] MEDS ORDERED: ACETAMINOPHEN 325 MG TAB PO (09:30)
[2019-02-28] MEDS: morphine 4 MG/ML VIAL IV (10:34)
[2019-02-28] MEDS: ONDANSETRON 4 MG INJ IV (10:34)
[2019-02-28] MEDS: FUROSEMIDE 40 MG INJ IV ×3 (11:04→18:56)
[2019-02-28 11:26] LABS: LACTIC ACID 9.6 mmol/L (0.5-2.0)
[2019-02-28] MEDS ORDERED: GLUCOSE GEL 15 GRAM TUBE BUCCAL (11:30)
[2019-02-28] MEDS ORDERED: NACL 0.9% 3 ML SYG IV (11:30)
[2019-02-28] MEDS ORDERED: GLUCAGON 1 MG INJ IM (11:30)
[2019-02-28] MEDS ORDERED: morphine 2 MG INJ IV (11:30)
[2019-02-28] MEDS ORDERED: DEXTROSE 50% 50 ML SYRINGE IV ×2 (11:30)
[2019-02-28] MEDS ORDERED: GLUCOSE GEL 15 GRAM TUBE PO ×2 (11:30)
[2019-02-28] MEDS: INSULIN ASPART [NOVOLOG] 3 ML PEN SC ×5 (12:00→22:50)
[2019-02-28] MEDS ORDERED: ALBUTEROL/IPRATROPIUM (NEB) 3 ML AMP HHN (12:30)
[2019-02-28] MEDS: ALBUTEROL/IPRATROPIUM (NEB) 3 ML AMP HHN ×3 (12:44→20:49)
[2019-02-28 13:38] LABS: LACTIC ACID 5.9 mmol/L (0.5-2.0)
[2019-02-28 13:45] LABS: CREATINE KINASE 76 IU/L (23-200)
[2019-02-28 13:58] LABS: CK INDEX 5.7
[2019-02-28 14:01] LABS: TROPONIN-I 0.218 ng/ml (0.000-0.120)
[2019-02-28] MEDS: INSULIN LISPRO 100 UNIT/ML VIAL SC (18:57)
[2019-02-28 20:01] LABS: ALANINE AMINOTRANSFERASE 37 IU/L (13-69); ALBUMIN 4.2 g/dl (3.3-4.9); ALKALINE PHOSPHATASE 47 IU/L (42-121); ANION GAP 19 (5-13); ASPARTATE AMINO TRANSFERASE 113 IU/L (15-46); BILIRUBIN,INDIRECT 0.8 mg/dl (0-1.1); BILIRUBIN,TOTAL 0.8 mg/dl (0.2-1.3); BLOOD UREA NITROGEN 32 mg/dl (7-20); CALCIUM 8.7 mg/dl (8.4-10.2); CARBON DIOXIDE 18 mmol/L (21-31); CHLORIDE 101 mmol/L (97-110); CREATININE 1.49 mg/dl (0.61-1.24); SODIUM 138 mmol/L (135-144); TOTAL PROTEIN 7.7 g/dl (6.1-8.1)
[2019-02-28] MEDS: ACCU-CHEK XX (20:30)
[2019-02-28 20:48] LABS: GLUCOSE 510 mg/dl (70-220); POTASSIUM 6.4 mmol/L (3.5-5.1)
[2019-02-28 21:00] LABS: CREATINE KINASE 449 IU/L (23-200)
[2019-02-28] MEDS ORDERED: HEPARIN 5,000 UNIT/1 ML VIAL SC (21:00)
[2019-02-28 21:26] LABS: CK INDEX 8.6
[2019-02-28] MEDS: METHYLPREDNISOLONE 40 MG INJ IV (22:43)
[2019-02-28] MEDS: SODIUM POLYSTYRENE 15 GM KIT (POWDER + SORBITOL) PO (22:45)
[2019-02-28] MEDS: HEPARIN 25000 UNITS/250 ML 250 ML IV (23:34)
[2019-02-28] MEDS: INSULIN GLARGINE [LANTus] (100 UNITS/ML) SYG SC (23:56)
[2019-03-01] MEDS: CALCIUM GLUCONATE 10% 1 GM in DEXTROSE 5% 100 ML IVPB (00:11)
[2019-03-01] MEDS: ACCU-CHEK XX ×5 (01:30→23:05)
[2019-03-01] MEDS: ALBUTEROL/IPRATROPIUM (NEB) 3 ML AMP HHN ×6 (01:33→20:39)
[2019-03-01 06:10] LABS: ADD MAN DIFF? NO; BASOPHILS % 0.2 % (0.0-2.0); HEMATOCRIT 45.6 % (42.0-52.0); HEMOGLOBIN 14.9 g/dl (14.0-18.0); LYMPHOCYTES # 0.7 10^3/ul (0.8-2.9); LYMPHOCYTES % 3.6 % (15.0-51.0); MEAN CORPUSCULAR HEMOGLOBIN 28.5 pg (29.0-33.0); MEAN CORPUSCULAR HGB CONC 32.7 g/dl (32.0-37.0); MEAN CORPUSCULAR VOLUME 87.2 fl (82.0-101.0); MEAN PLATELET VOLUME 10.1 fl (7.4-10.4); MONOCYTE # 0.7 10^3/ul (0.3-0.9); MONOCYTES % 3.8 % (0.0-11.0); NEUTROPHIL # 16.7 10^3/ul (1.6-7.5); NEUTROPHILS % 91.5 % (39.0-77.0); PLATELET COUNT 273 10^3/UL (140-415); RED BLOOD COUNT 5.23 10^6/ul (4.70-6.10); RED CELL DISTRIBUTION WIDTH 14.4 % (11.5-14.5)
[2019-03-01 06:10] LABS: WHITE BLOOD COUNT 18.3 10^3/ul (4.8-10.8)
[2019-03-01 06:27] LABS: ALANINE AMINOTRANSFERASE 36 IU/L (13-69); ALBUMIN 3.9 g/dl (3.3-4.9); ALBUMIN/GLOBULIN RATIO 1.18; ALKALINE PHOSPHATASE 43 IU/L (42-121); ANION GAP 16 (5-13); ASPARTATE AMINO TRANSFERASE 171 IU/L (15-46); BILIRUBIN,INDIRECT 0.9 mg/dl (0-1.1); BILIRUBIN,TOTAL 0.9 mg/dl (0.2-1.3); BLOOD UREA NITROGEN 36 mg/dl (7-20); CALCIUM 8.7 mg/dl (8.4-10.2); CARBON DIOXIDE 24 mmol/L (21-31); CHLORIDE 101 mmol/L (97-110); CREATININE 1.69 mg/dl (0.61-1.24); POTASSIUM 3.8 mmol/L (3.5-5.1); SODIUM 141 mmol/L (135-144); TOTAL PROTEIN 7.2 g/dl (6.1-8.1)
[2019-03-01 06:30] LABS: GLUCOSE 404 mg/dl (70-220)
[2019-03-01 06:31] LABS: HEMOGLOBIN A1C 8.7 % (0-5.9)
[2019-03-01 06:47] LABS: PARTIAL THROMBOPLASTIN TIME 46.3 Sec (23.0-35.0)
[2019-03-01] MEDS: FUROSEMIDE 40 MG INJ IV ×2 (07:04→17:45)
[2019-03-01] MEDS: METHYLPREDNISOLONE 40 MG INJ IV (07:04)
[2019-03-01] MEDS: INSULIN ASPART [NOVOLOG] 3 ML PEN SC ×7 (07:37→17:39)
[2019-03-01 07:43] LABS: AADO2 Arterial 606.9 mmHg (7.0-24.0); AADO2 Arterial 615.6 mmHg (7.0-24.0); Allen Test ACCEPTAB; Arterial Base Excess -5.5 mmol/L (-3.0-3); Arterial Base Excess -7.9 mmol/L (-3.0-3); Arterial Blood Gas Oxygen Sat 91.2 mmHG (95.0-100.0); Arterial COHb 0.3 % (0.0-3.0); Arterial COHb 0.4 % (0.0-3.0); Arterial Fraction of Oxyhgb 90.7 % (93.0-99.0); Arterial Fraction of Oxyhgb 91.4 % (93.0-99.0); Arterial HCO3 17.9 mmol/L (22.0-26.0); Arterial HCO3 18.6 mmol/L (22.0-26.0); Arterial MetHb 0.1 % (0.0-1.5); Arterial MetHb 0.3 % (0.0-1.5); Arterial pCO2 33.1 mmhg (35-45); Arterial pCO2 37.7 mmhg (35-45); Blood Gas IEPAP 16/8; Blood Gas PS 8; MODE HFNC; MODE MASK - BIPAP; Site Left Radial; Site Right Radial
[2019-03-01] MEDS: HEPARIN 1000 UNITS/ML 10 ML INJ IV (08:16)
[2019-03-01] MEDS: HEPARIN 25000 UNITS/250 ML 250 ML IV ×3 (08:16→21:12)
[2019-03-01] MEDS: ASPIRIN (EC) 81 MG TAB PO (09:00)
[2019-03-01] MEDS: METOPROLOL 25 MG TAB PO (09:00)
[2019-03-01] MEDS: LOSARTAN 50 MG TAB PO (09:00)
[2019-03-01] MEDS: LINAGLIPTIN 5 MG TABLET PO (13:43)
[2019-03-01 16:15] LABS: PARTIAL THROMBOPLASTIN TIME 166.7 Sec (23.0-35.0)
[2019-03-01 17:37] LABS: PARTIAL THROMBOPLASTIN TIME 113.1 Sec (23.0-35.0)
[2019-03-01] MEDS: DIGOXIN 500 MCG INJ IV (18:33)
[2019-03-01] MEDS: CLOPIDOGREL 75 MG TAB PO (18:33)
[2019-03-01 19:28] LABS: PROCALCITONIN 0.63 ng/mL (0.00-0.10)
[2019-03-01] MEDS ORDERED: INSULIN GLARGINE [LANTus] (100 UNITS/ML) SYG SC (20:00)
[2019-03-01] MEDS: BUMETANIDE 6 MG in DEXTROSE 5% 36 ML IV (21:21)
[2019-03-01] MEDS: INSULIN HUMAN REGULAR 100 UNIT in SOD CHLORIDE 0.9% 99 ML IV (21:33)
[2019-03-02] MEDS: ACCU-CHEK XX ×25 (00:06→23:58)
[2019-03-02] MEDS: ALBUTEROL/IPRATROPIUM (NEB) 3 ML AMP HHN ×6 (00:54→20:02)
[2019-03-02 01:21] LABS: PARTIAL THROMBOPLASTIN TIME 58.3 Sec (23.0-35.0)
[2019-03-02 05:22] LABS: ADD MAN DIFF? NO
[2019-03-02 05:26] LABS: WHITE BLOOD COUNT 20.3 10^3/ul (4.8-10.8)
[2019-03-02 05:26] LABS: BASOPHILS % 0.1 % (0.0-2.0); HEMATOCRIT 44.5 % (42.0-52.0); HEMOGLOBIN 14.7 g/dl (14.0-18.0); LYMPHOCYTES # 1.4 10^3/ul (0.8-2.9); LYMPHOCYTES % 7.1 % (15.0-51.0); MEAN CORPUSCULAR HEMOGLOBIN 28.3 pg (29.0-33.0); MEAN CORPUSCULAR VOLUME 85.6 fl (82.0-101.0); MEAN PLATELET VOLUME 10.1 fl (7.4-10.4); MONOCYTE # 1.2 10^3/ul (0.3-0.9); MONOCYTES % 5.8 % (0.0-11.0); NEUTROPHIL # 17.5 10^3/ul (1.6-7.5); NEUTROPHILS % 85.9 % (39.0-77.0); PLATELET COUNT 261 10^3/UL (140-415); RED CELL DISTRIBUTION WIDTH 14.6 % (11.5-14.5)
[2019-03-02 05:43] LABS: CREATINE KINASE 309 IU/L (23-200)
[2019-03-02 05:51] LABS: ALANINE AMINOTRANSFERASE 35 IU/L (13-69); ALBUMIN 4.1 g/dl (3.3-4.9); ALKALINE PHOSPHATASE 44 IU/L (42-121); ANION GAP 15 (5-13); ASPARTATE AMINO TRANSFERASE 117 IU/L (15-46); BILIRUBIN,INDIRECT 1.3 mg/dl (0-1.1); BILIRUBIN,TOTAL 1.3 mg/dl (0.2-1.3); BLOOD UREA NITROGEN 39 mg/dl (7-20); CALCIUM 8.6 mg/dl (8.4-10.2); CARBON DIOXIDE 33 mmol/L (21-31); CHLORIDE 97 mmol/L (97-110); CREATININE 1.53 mg/dl (0.61-1.24); GLUCOSE 88 mg/dl (70-220); HDL CHOLESTEROL 35 mg/dl (31-75); INR 1.19; MAGNESIUM 1.9 mg/dl (1.7-2.5); PROTIME 15.2 Sec (11.9-14.9); PT RATIO 1.2; SODIUM 145 mmol/L (135-144); TOTAL PROTEIN 7.5 g/dl (6.1-8.1); TRIGLYCERIDES 199 mg/dl (0-149)
[2019-03-02 05:55] LABS: CK INDEX 5.7
[2019-03-02 05:59] LABS: B-TYPE NATRIURETIC PEPTIDE 23600 PG/ML (0-450)
[2019-03-02 06:04] LABS: CHOLESTEROL 350 mg/dl (100-200); LDL CHOLESTEROL,CALCULATED 275 mg/dl
[2019-03-02 06:04] LABS: FREE T4 (FREE THYROXINE) 1.91 ng/dl (0.85-1.93)
[2019-03-02 06:06] LABS: POTASSIUM 2.9 mmol/L (3.5-5.1)
[2019-03-02 06:20] LABS: THYROID STIMULATING HORMONE 0.099 MIU/L (0.465-4.680)
[2019-03-02] MEDS ORDERED: NITROGLYCERIN (SL) 0.4 MG TAB (06:20)
[2019-03-02] MEDS: NITROGLYCERIN (SL) 0.4 MG TAB SL (06:32)
[2019-03-02] MEDS: POTASSIUM CHLORIDE 100 ML IVPB ×3 (06:43→12:15)
[2019-03-02 08:43] LABS: PARTIAL THROMBOPLASTIN TIME 43.4 Sec (23.0-35.0)
[2019-03-02] MEDS: CLOPIDOGREL 75 MG TAB PO (09:20)
[2019-03-02] MEDS: predniSONE 20 MG TAB PO (09:20)
[2019-03-02] MEDS: ASPIRIN (EC) 81 MG TAB PO (09:20)
[2019-03-02] MEDS: MAGNESIUM SULFATE 1 GM/D5W 100 ML IVPB (11:33)
[2019-03-02 13:36] LABS: ANION GAP 11 (5-13); BLOOD UREA NITROGEN 37 mg/dl (7-20); CALCIUM 8.2 mg/dl (8.4-10.2); CARBON DIOXIDE 32 mmol/L (21-31); CHLORIDE 97 mmol/L (97-110); GLUCOSE 119 mg/dl (70-220); MAGNESIUM 2.4 mg/dl (1.7-2.5); SODIUM 140 mmol/L (135-144)
[2019-03-02 13:36] LABS: PARTIAL THROMBOPLASTIN TIME 41.7 Sec (23.0-35.0)
[2019-03-02 13:43] LABS: POTASSIUM 2.9 mmol/L (3.5-5.1)
[2019-03-02] MEDS: HEPARIN 1000 UNITS/ML 10 ML INJ IV (15:09)
[2019-03-02] MEDS: HEPARIN 25000 UNITS/250 ML 250 ML IV ×2 (15:12→16:49)
[2019-03-02] MEDS: POTASSIUM CHLORIDE (SR) 20 MEQ TAB PO (15:45)
[2019-03-02 15:48] LABS: PROCALCITONIN 0.39 ng/mL (0.00-0.10)
[2019-03-02] MEDS ORDERED: VANCOMYCIN IV PER PHARMACY XX (16:30)
[2019-03-02] MEDS: BUMETANIDE 6 MG in DEXTROSE 5% 36 ML IV (16:43)
[2019-03-02] MEDS: INSULIN HUMAN REGULAR 100 UNIT in SOD CHLORIDE 0.9% 99 ML IV (16:50)
[2019-03-02] MEDS: SPIRONOLACTONE 25 MG TAB PO (17:29)
[2019-03-02] MEDS: CEFEPIME 1GM/50 ML (PMX) 50 ML IVPB (18:17)
[2019-03-02] MEDS: ISOSORBIDE DINITRATE 20 MG TAB PO (20:25)
[2019-03-02] MEDS: VANCOMYCIN HCL 2 GM in SOD CHLORIDE 0.9% 500 ML IVPB (20:31)
[2019-03-02 21:43] LABS: PARTIAL THROMBOPLASTIN TIME 101.8 Sec (23.0-35.0)
[2019-03-02 22:07] LABS: ADD UMIC NO; UR ASCORBIC ACID NEGATIVE (NEGATIVE); UR BILIRUBIN (Dip) NEGATIVE (NEGATIVE); UR BLOOD (Dip) NEGATIVE (NEGATIVE); UR CLARITY CLEAR (CLEAR); UR COLOR YELLOW (YELLOW); UR GLUCOSE (Dip) NEGATIVE (NEGATIVE); UR KETONES (Dip) NEGATIVE (NEGATIVE); UR LEUKOCYTE ESTERASE (Dip) NEGATIVE Leu/ul (NEGATIVE); UR NITRITE (Dip) NEGATIVE (NEGATIVE); UR SPECIFIC GRAVITY (Dip) 1.011 (1.003-1.030); UR TOTAL PROTEIN (Dip) NEGATIVE (NEGATIVE); UR UROBILINOGEN (Dip) NEGATIVE (NEGATIVE)
[2019-03-02 22:21] LABS: CREATININE,URINE RANDOM 58.04 mg/dl (20-370)
[2019-03-02 22:21] LABS: SODIUM,URINE RANDOM 46 mmol/L (30-90)
[2019-03-03] MEDS: CEFEPIME 1GM/50 ML (PMX) 50 ML IVPB ×3 (00:32→21:16)
[2019-03-03] MEDS: ACCU-CHEK XX ×11 (01:03→11:01)
[2019-03-03] MEDS: ALBUTEROL/IPRATROPIUM (NEB) 3 ML AMP HHN ×6 (01:20→21:29)
[2019-03-03 05:08] LABS: ADD MAN DIFF? NO
[2019-03-03 05:15] LABS: BASOPHILS % 0.1 % (0.0-2.0); EOSINOPHILS % 0.1 % (0.0-7.0); HEMATOCRIT 43.3 % (42.0-52.0); HEMOGLOBIN 14.2 g/dl (14.0-18.0); LYMPHOCYTES # 2.1 10^3/ul (0.8-2.9); LYMPHOCYTES % 12.2 % (15.0-51.0); MEAN CORPUSCULAR HEMOGLOBIN 28.3 pg (29.0-33.0); MEAN CORPUSCULAR HGB CONC 32.8 g/dl (32.0-37.0); MEAN CORPUSCULAR VOLUME 86.4 fl (82.0-101.0); MEAN PLATELET VOLUME 9.8 fl (7.4-10.4); MONOCYTE # 1.1 10^3/ul (0.3-0.9); MONOCYTES % 6.3 % (0.0-11.0); NEUTROPHIL # 14.2 10^3/ul (1.6-7.5); NEUTROPHILS % 80.5 % (39.0-77.0); PLATELET COUNT 246 10^3/UL (140-415); RED BLOOD COUNT 5.01 10^6/ul (4.70-6.10); RED CELL DISTRIBUTION WIDTH 14.6 % (11.5-14.5)
[2019-03-03 05:15] LABS: WHITE BLOOD COUNT 17.6 10^3/ul (4.8-10.8)
[2019-03-03 05:33] LABS: CREATINE KINASE 139 IU/L (23-200)
[2019-03-03 05:36] LABS: ALANINE AMINOTRANSFERASE 23 IU/L (13-69); ALBUMIN 3.9 g/dl (3.3-4.9); ALBUMIN/GLOBULIN RATIO 1.02; ALKALINE PHOSPHATASE 48 IU/L (42-121); ANION GAP 10 (5-13); ASPARTATE AMINO TRANSFERASE 58 IU/L (15-46); BILIRUBIN,INDIRECT 1.6 mg/dl (0-1.1); BILIRUBIN,TOTAL 1.6 mg/dl (0.2-1.3); BLOOD UREA NITROGEN 37 mg/dl (7-20); CARBON DIOXIDE 34 mmol/L (21-31); CHLORIDE 97 mmol/L (97-110); CREATININE 1.33 mg/dl (0.61-1.24); GLUCOSE 110 mg/dl (70-220); POTASSIUM 3.1 mmol/L (3.5-5.1); SODIUM 141 mmol/L (135-144); TOTAL PROTEIN 7.7 g/dl (6.1-8.1)
[2019-03-03 05:42] LABS: B-TYPE NATRIURETIC PEPTIDE 13800 PG/ML (0-450)
[2019-03-03 05:45] LABS: CK INDEX 2.9
[2019-03-03 06:24] LABS: MAGNESIUM 2.1 mg/dl (1.7-2.5)
[2019-03-03] MEDS ORDERED: POTASSIUM CHLORIDE (SR) 10 MEQ TAB PO (06:30)
[2019-03-03] MEDS: POTASSIUM CHLORIDE (SR) 20 MEQ TAB PO ×2 (06:48→16:11)
[2019-03-03 07:20] LABS: AADO2 Arterial 507.4 mmHg (7.0-24.0); Allen Test ACCEPTAB; Arterial Blood Gas Oxygen Sat 97.6 mmHG (95.0-100.0); Arterial COHb 0.6 % (0.0-3.0); Arterial Fraction of Oxyhgb 96.8 % (93.0-99.0); Arterial MetHb 0.2 % (0.0-1.5); Arterial pCO2 37.8 mmhg (35-45); MODE HFNC; Site Left Radial
[2019-03-03] MEDS: predniSONE 20 MG TAB PO (08:22)
[2019-03-03] MEDS: ASPIRIN (EC) 81 MG TAB PO (08:22)
[2019-03-03] MEDS: ISOSORBIDE DINITRATE 20 MG TAB PO ×3 (08:23→21:19)
[2019-03-03] MEDS: CLOPIDOGREL 75 MG TAB PO (08:23)
[2019-03-03] MEDS: LOSARTAN 25 MG TAB PO (08:23)
[2019-03-03] MEDS: SPIRONOLACTONE 25 MG TAB PO (08:24)
[2019-03-03] MEDS: ENOXAPARIN 60 MG/0.6 ML SYG SC ×2 (08:25→21:30)
[2019-03-03] MEDS: BUMETANIDE 6 MG in DEXTROSE 5% 36 ML IV (12:08)
[2019-03-03] MEDS: INSULIN GLARGINE [LANTus] (100 UNITS/ML) SYG SC (12:19)
[2019-03-03] MEDS: INSULIN ASPART [NOVOLOG] 3 ML PEN SC ×5 (12:28→21:00)
[2019-03-03] MEDS: METHYLPREDNISOLONE 40 MG INJ IV ×2 (13:26→21:18)
[2019-03-03] MEDS: DIGOXIN 0.125 MG TAB PO (13:27)
[2019-03-03] MEDS: NITROGLYCERIN (SL) 0.4 MG TAB SL ×3 (14:49→16:44)
[2019-03-03 15:16] LABS: ANION GAP 9 (5-13); BLOOD UREA NITROGEN 42 mg/dl (7-20); CALCIUM 7.4 mg/dl (8.4-10.2); CARBON DIOXIDE 29 mmol/L (21-31); CHLORIDE 97 mmol/L (97-110); CREATININE 1.34 mg/dl (0.61-1.24); GLUCOSE 333 mg/dl (70-220); SODIUM 135 mmol/L (135-144)
[2019-03-03] MEDS: VANCOMYCIN HCL 1.5 GM in SOD CHLORIDE 0.9% 250 ML IVPB (17:35)
[2019-03-03] MEDS: INSULIN REGULAR, HUMAN 100 UNIT/1 ML 3ML VIAL IV (22:30)
[2019-03-04] MEDS: INSULIN ASPART [NOVOLOG] 3 ML PEN SC ×8 (00:49→23:26)
[2019-03-04] MEDS: ALBUTEROL/IPRATROPIUM (NEB) 3 ML AMP HHN ×6 (01:11→20:22)
[2019-03-04] MEDS: INSULIN REGULAR, HUMAN 100 UNIT/1 ML 3ML VIAL IV (02:44)
[2019-03-04] MEDS: METHYLPREDNISOLONE 40 MG INJ IV ×3 (06:26→22:55)
[2019-03-04] MEDS: NPH, HUMAN INSULIN ISOPHANE 3ML VIAL SC ×3 (06:31→23:26)
[2019-03-04 07:11] LABS: DIGOXIN 0.4 ng/ml (1.0-2.0)
[2019-03-04 07:29] LABS: ALANINE AMINOTRANSFERASE 25 IU/L (13-69); ALBUMIN 3.7 g/dl (3.3-4.9); ALKALINE PHOSPHATASE 58 IU/L (42-121); ANION GAP 12 (5-13); ASPARTATE AMINO TRANSFERASE 26 IU/L (15-46); BLOOD UREA NITROGEN 52 mg/dl (7-20); CALCIUM 7.7 mg/dl (8.4-10.2); CARBON DIOXIDE 29 mmol/L (21-31); CHLORIDE 98 mmol/L (97-110); CREATININE 1.59 mg/dl (0.61-1.24); GLUCOSE 359 mg/dl (70-220); MAGNESIUM 2.4 mg/dl (1.7-2.5); POTASSIUM 3.9 mmol/L (3.5-5.1); SODIUM 139 mmol/L (135-144); TOTAL PROTEIN 7.4 g/dl (6.1-8.1)
[2019-03-04 07:30] LABS: B-TYPE NATRIURETIC PEPTIDE 7160 PG/ML (0-450)
[2019-03-04] MEDS ORDERED: INSULIN GLARGINE [LANTus] (100 UNITS/ML) SYG SC (08:00)
[2019-03-04] MEDS: CEFEPIME 1GM/50 ML (PMX) 50 ML IVPB ×2 (08:25→22:50)
[2019-03-04] MEDS: SPIRONOLACTONE 25 MG TAB PO (08:26)
[2019-03-04] MEDS: LOSARTAN 25 MG TAB PO (08:26)
[2019-03-04] MEDS: CLOPIDOGREL 75 MG TAB PO (08:26)
[2019-03-04] MEDS: ASPIRIN (EC) 81 MG TAB PO (08:27)
[2019-03-04] MEDS: ISOSORBIDE DINITRATE 20 MG TAB PO ×3 (08:27→22:58)
[2019-03-04] MEDS: ENOXAPARIN 60 MG/0.6 ML SYG SC ×2 (08:31→23:25)
[2019-03-04 08:37] LABS: AADO2 Arterial 323.1 mmHg (7.0-24.0); Allen Test ACCEPTAB; Arterial Base Excess 3.1 mmol/L (-3.0-3); Arterial Blood Gas Oxygen Sat 94.5 mmHG (95.0-100.0); Arterial COHb 0.4 % (0.0-3.0); Arterial Fraction of Oxyhgb 93.9 % (93.0-99.0); Arterial HCO3 25.4 mmol/L (22.0-26.0); Arterial MetHb 0.2 % (0.0-1.5); Arterial pCO2 32.1 mmhg (35-45); MODE HFNC; Site Right Radial
[2019-03-04] MEDS: INSULIN GLARGINE [LANTus] (100 UNITS/ML) SYG SC (09:26)
[2019-03-04] MEDS: DIGOXIN 0.125 MG TAB PO (13:44)
[2019-03-04 15:02] LABS: CREATININE, RANDOM URINE 61 mg/dL (20-320); MICROALBUMIN 3.4 mg/dL; MICROALBUMIN/CREATININE RATIO 56 (<30)
[2019-03-04] MEDS: BUMETANIDE 1 MG INJ IV (17:27)
[2019-03-04] MEDS ORDERED: LINAGLIPTIN 5 MG TABLET PO (18:00)
[2019-03-04] MEDS: NITROGLYCERIN (SL) 0.4 MG TAB SL (19:04)
[2019-03-04] MEDS ORDERED: GLUCOSE GEL 15 GRAM TUBE BUCCAL (19:30)
[2019-03-04] MEDS ORDERED: DEXTROSE 50% 50 ML SYRINGE IV ×2 (19:30)
[2019-03-04] MEDS ORDERED: GLUCOSE GEL 15 GRAM TUBE PO ×2 (19:30)
[2019-03-04] MEDS ORDERED: GLUCAGON 1 MG INJ IM (19:30)
[2019-03-04] MEDS: TIOTROPIUM 18 MCG CAPSULE INHA DEV INH (22:47)
[2019-03-04] MEDS: MONTELUKAST 10 MG TAB PO (22:58)
[2019-03-04] MEDS: METOPROLOL (XL) 25 MG TAB PO (22:58)
[2019-03-04] MEDS: LINAGLIPTIN 5 MG TABLET PO (23:01)
[2019-03-05] MEDS: ALBUTEROL/IPRATROPIUM (NEB) 3 ML AMP HHN ×6 (00:52→20:01)
[2019-03-05] MEDS: FLUTICASONE/VILANTEROL 100-25 INH ×2 (02:23→09:32)
[2019-03-05] MEDS: METHYLPREDNISOLONE 40 MG INJ IV (05:08)
[2019-03-05] MEDS: BUMETANIDE 1 MG INJ IV ×2 (05:08→17:54)
[2019-03-05] MEDS: VANCOMYCIN HCL 1.5 GM in SOD CHLORIDE 0.9% 250 ML IVPB (05:09)
[2019-03-05] MEDS: NPH, HUMAN INSULIN ISOPHANE 3ML VIAL SC (05:28)
[2019-03-05 07:18] LABS: ANION GAP 12 (5-13); BLOOD UREA NITROGEN 68 mg/dl (7-20); CALCIUM 7.5 mg/dl (8.4-10.2); CARBON DIOXIDE 27 mmol/L (21-31); CHLORIDE 98 mmol/L (97-110); CREATININE 1.66 mg/dl (0.61-1.24); GLUCOSE 301 mg/dl (70-220); MAGNESIUM 2.5 mg/dl (1.7-2.5); POTASSIUM 3.6 mmol/L (3.5-5.1); SODIUM 137 mmol/L (135-144)
[2019-03-05 07:32] LABS: FREE T3 2.87 pg/ml (2.77-5.27)
[2019-03-05 07:46] LABS: THYROID STIMULATING HORMONE < 0.015 MIU/L (0.465-4.680)
[2019-03-05 07:48] LABS: FREE T4 (FREE THYROXINE) 1.94 ng/dl (0.85-1.93)
[2019-03-05] MEDS: INSULIN ASPART [NOVOLOG] 3 ML PEN SC ×7 (07:59→20:48)
[2019-03-05] MEDS ORDERED: INSULIN GLARGINE [LANTus] (100 UNITS/ML) SYG SC (08:00)
[2019-03-05] MEDS: INSULIN GLARGINE [LANTus] (100 UNITS/ML) SYG SC ×2 (08:41→18:25)
[2019-03-05] MEDS: CLOPIDOGREL 75 MG TAB PO (09:20)
[2019-03-05] MEDS: ISOSORBIDE DINITRATE 20 MG TAB PO ×3 (09:21→20:37)
[2019-03-05] MEDS: EMPAGLIFLOZIN 10 MG TABLET PO (09:21)
[2019-03-05] MEDS: ASPIRIN (EC) 81 MG TAB PO (09:21)
[2019-03-05] MEDS: LINAGLIPTIN 5 MG TABLET PO (09:31)
[2019-03-05] MEDS: METOPROLOL (XL) 25 MG TAB PO (09:31)
[2019-03-05] MEDS: SPIRONOLACTONE 25 MG TAB PO (09:32)
[2019-03-05] MEDS: LOSARTAN 25 MG TAB PO (09:32)
[2019-03-05] MEDS: CEFEPIME 1GM/50 ML (PMX) 50 ML IVPB (09:33)
[2019-03-05] MEDS: TIOTROPIUM 18 MCG CAPSULE INHA DEV INH (09:33)
[2019-03-05] MEDS: ENOXAPARIN 60 MG/0.6 ML SYG SC ×2 (09:40→20:49)
[2019-03-05 11:48] LABS: PROCALCITONIN 0.17 ng/mL (0.00-0.10)
[2019-03-05] MEDS: DIGOXIN 0.125 MG TAB PO (12:21)
[2019-03-05] MEDS: NITROGLYCERIN (SL) 0.4 MG TAB SL (16:59)
[2019-03-05] MEDS: METOPROLOL (XL) 50 MG TAB PO (20:36)
[2019-03-05] MEDS: METHIMAZOLE 5 MG TAB PO (20:36)
[2019-03-05] MEDS: MONTELUKAST 10 MG TAB PO (20:36)
[2019-03-06] MEDS ORDERED: INSULIN GLARGINE [LANTus] (100 UNITS/ML) SYG SC (08:00)
== END 2019-03-05 21:46 | DRG 280 ==
LOC: 6WM 03-03 18:41 → E/R 07:15 → 6WM 17:37 → ICU 03-01 20:13 → 6WM 09:16
PROC: 5A09457 Assistance with Respiratory Ventilation, 24-96 Consecutive Hours, Continuous Positive Airway Pressure (ICD-10-PCS; principal; 2019-02-28)
DX: I13.0 Hypertensive heart and chronic kidney disease with heart failure and stage 1 through stage 4 chronic kidney disease, or unspecified chronic kidney disease (principal); J96.21 Acute and chronic respiratory failure with hypoxia; I21.A1 Myocardial infarction type 2; I50.43 Acute on chronic combined systolic (congestive) and diastolic (congestive) heart failure; J44.1 Chronic obstructive pulmonary disease with (acute) exacerbation; E87.2 Acidosis; N17.9 Acute kidney failure, unspecified; E87.0 Hyperosmolality and hypernatremia; E87.3 Alkalosis; E11.65 Type 2 diabetes mellitus with hyperglycemia; E11.22 Type 2 diabetes mellitus with diabetic chronic kidney disease; E05.90 Thyrotoxicosis, unspecified without thyrotoxic crisis or storm; I25.5 Ischemic cardiomyopathy; N18.3 Chronic kidney disease, stage 3 (moderate); Z95.1 Presence of aortocoronary bypass graft; I25.10 Atherosclerotic heart disease of native coronary artery without angina pectoris; E78.5 Hyperlipidemia, unspecified; E87.6 Hypokalemia; Z79.4 Long term (current) use of insulin; Z79.82 Long term (current) use of aspirin
CPT/HCPCS: 36600; 71045; 71275; 80048; 80053; 80061; 80162; 81003; 82043; 82550; 82553; 82803; 82962; 83036; 83605; 83735; 83880; 84145; 84155; 84300; 84439; 84443; 84481; 84484; 85025; 85610; 85730; 87040-91; 87081; 93005; 93306; 94640; 94644; 94660; 94664; 96374; 96375; 97163; 99285-25